=== PATIENT | female | born 1970 | race Caucasian/White ===

== ENCOUNTER 2020-10-25 20:09 | Emergency (ER) | payer BC, OTHER ==
[~2020-10-25 20:09] MED LIST: AIMOVIG AU140 MG/1 M SQ; ALBUTEROL1.25 MG/3 INH; ASPIR 8181 MG PO; ATROVENT HFA12.9 GM INH; AUGMENTIN 875-1 EACH PO; CIPRO500 MG PO; COLACE 100MG C100 MG PO; CYANOCOBAL1000 MCG/1 INJ; CYCLOBENZAPRINE5 MG PO; ELAVIL 50 MG TA50 MG PO; FLAGYL500 MG PO; FLONASE 0.05% N16 GM; HYDROCODON-ACE1 EAC4 PO; IBUPROFEN600 MG PO; IPRATROPIU0.2 MG/1 M INH; LEVAQUIN500 MG PO; NAPROSYN500 MG PO; NORCO 5-325 TA1 EACH PO; NORCO 7.5-3251 EACH PO; PREDNISONE20 MG PO; PROVENTIL HFA6.7 GM INH; ROBITUSSIN DM UD5 ML PO; SINGULAIR10 MG PO; TESSALON PERLE100 MG PO; TRAZODONE HCL150 MG PO; VENTOLIN HFA 66.7 GM INH; WELLBUTRIN XL300 M1 PO; ZESTRIL5 MG PO; ZOFRAN4 MG PO; ZYRTEC10 MG PO
== END 2020-10-25 22:14 | disposition left against medical advice (07) ==
LOC: ER1 20:09
DX: R05 Cough (principal); R07.9 Chest pain, unspecified; Z53.21 Procedure and treatment not carried out due to patient leaving prior to being seen by health care provider

== ENCOUNTER 2020-10-27 14:16 | Emergency (ER) | payer OTHER ==
[2020-10-27 16:36] LABS: RED BLOOD COUNT 4.58 M/UL (4.00-5.10); WHITE BLOOD COUNT 8.9 K/UL (4.5-11.0)
[2020-10-27 17:07] LABS: BUN/CREATININE RATIO 22 (0-10)
[2020-10-27] MEDS ORDERED: CEFUROXIME500 MG PO (17:12)
[2020-10-27] MEDS ORDERED: ZOFRAN4 MG PO (17:12)
== END 2020-10-27 17:38 | disposition home or self-care (01) ==
LOC: ER1 14:16
PROVIDERS: Preventive Medicine Occupational Medicine
DX: N39.0 Urinary tract infection, site not specified (principal); I10 Essential (primary) hypertension; I25.10 Atherosclerotic heart disease of native coronary artery without angina pectoris; E11.9 Type 2 diabetes mellitus without complications; F17.210 Nicotine dependence, cigarettes, uncomplicated; Z88.8 Allergy status to other drugs, medicaments and biological substances; Z20.828 Contact with and (suspected) exposure to other viral communicable diseases
CPT/HCPCS: 71045; 80053; 81001; 83690; 85025; 85652; 86140; 87086; 87635; 93005; 94664; 96374; 99284; J2405; J7030

== ENCOUNTER → 2020-12-07 | Outpatient (CLI) | payer OTHER ==
[~2020-12-07] MED LIST changes: +CEFUROXIME500 MG PO; +IBUPROFEN800 MG PO; +MACROBID 100 M100 M1 PO
== END ==
LOC: RAD 15:17
DX: Z03.818 Encounter for observation for suspected exposure to other biological agents ruled out (principal); M25.562 Pain in left knee; R51.9 Headache, unspecified; R43.0 Anosmia; M25.561 Pain in right knee; M25.512 Pain in left shoulder
CPT/HCPCS: 71046; 72040; 73030; 73560

== ENCOUNTER → 2021-01-19 | Outpatient (CLI) | payer OTHER | LOC: SLEEP 21:30 | DX: R29.818 Other symptoms and signs involving the nervous system (principal) | CPT/HCPCS: 95810 ==

== ENCOUNTER 2021-04-06 20:44 | Emergency (ER) | payer OTHER ==
[~2021-04-06 20:44] MED LIST changes: -IBUPROFEN800 MG PO; -MACROBID 100 M100 M1 PO
[2021-04-06] MEDS ORDERED: IBUPROFEN800 MG PO (22:39)
== END 2021-04-06 23:15 | disposition home or self-care (01) ==
LOC: ER1 20:44
DX: S80.01XA Contusion of right knee, initial encounter (principal); F17.210 Nicotine dependence, cigarettes, uncomplicated; Z90.710 Acquired absence of both cervix and uterus; Z88.8 Allergy status to other drugs, medicaments and biological substances; Z90.89 Acquired absence of other organs; W20.8XXA Other cause of strike by thrown, projected or falling object, initial encounter
CPT/HCPCS: 73562; 96372; 99283; J1885

== ENCOUNTER → 2021-04-14 | Outpatient (CLI) | payer OTHER ==
[~2021-04-14] MED LIST changes: +IBUPROFEN800 MG PO; +MACROBID 100 M100 M1 PO
== END ==
LOC: KOH-I 11:30
DX: M25.561 Pain in right knee (principal); E55.9 Vitamin D deficiency, unspecified; M79.605 Pain in left leg; M25.512 Pain in left shoulder; G47.30 Sleep apnea, unspecified; R79.89 Other specified abnormal findings of blood chemistry
CPT/HCPCS: 73221

== ENCOUNTER 2021-05-17 13:56 | Emergency (ER) | payer OTHER ==
[~2021-05-17 13:56] MED LIST changes: -MACROBID 100 M100 M1 PO
[2021-05-17] MEDS ORDERED: MACROBID 100 M100 M1 PO (18:03)
[2021-05-17] MEDS ORDERED: TESSALON PERLE100 MG PO (18:03)
== END 2021-05-17 18:18 | disposition home or self-care (01) ==
LOC: ER1 13:56
DX: J06.9 Acute upper respiratory infection, unspecified (principal); N30.90 Cystitis, unspecified without hematuria; I10 Essential (primary) hypertension; J44.9 Chronic obstructive pulmonary disease, unspecified; Z86.73 Personal history of transient ischemic attack (TIA), and cerebral infarction without residual deficits; Z90.710 Acquired absence of both cervix and uterus; F17.200 Nicotine dependence, unspecified, uncomplicated; Z20.822 Contact with and (suspected) exposure to COVID-19; Z88.8 Allergy status to other drugs, medicaments and biological substances
CPT/HCPCS: 0240U; 71045; 81001; 99285

== ENCOUNTER → 2021-09-09 | Outpatient (CLI) | payer OTHER ==
[~2021-09-09] MED LIST changes: +MACROBID 100 M100 M1 PO
== END ==
LOC: KOH-I 11:55
DX: J20.9 Acute bronchitis, unspecified (principal); Z03.818 Encounter for observation for suspected exposure to other biological agents ruled out
CPT/HCPCS: 71046

== ENCOUNTER 2021-12-23 16:50 | Emergency (ER) | payer OTHER ==
[2021-12-23 17:50] LABS: RED BLOOD COUNT 4.35 M/UL (4.00-5.10); WHITE BLOOD COUNT 9.6 K/UL (4.5-11.0)
[2021-12-23 18:19] LABS: BUN/CREATININE RATIO 18 (0-10)
[2021-12-23] MEDS ORDERED: CARBAMAZEPINE100 M1 PO (19:16)
== END 2021-12-23 19:45 | disposition home or self-care (01) ==
LOC: ER1 16:50
PROVIDERS: Physician Assistant
DX: G50.0 Trigeminal neuralgia (principal); R42 Dizziness and giddiness; F17.200 Nicotine dependence, unspecified, uncomplicated; R51.9 Headache, unspecified
CPT/HCPCS: 70450; 71045; 80053; 82550; 82553; 84484; 85025; 93005; 99284; J1885

== ENCOUNTER 2022-01-28 13:54 | Emergency (ER) | payer OTHER ==
[~2022-01-28 13:54] MED LIST changes: +CARBAMAZEPINE100 M1 PO
[2022-01-28 16:46] LABS: HEMOGLOBIN 14.1 gm/dl (12.3-15.3); RED BLOOD COUNT 4.54 M/UL (4.00-5.10)
[2022-01-28 17:03] LABS: BUN/CREATININE RATIO 17 (0-10)
[2022-01-28] MEDS ORDERED: CYCLOBENZAPRINE10 MG PO (19:09)
== END 2022-01-28 19:52 | disposition home or self-care (01) ==
LOC: ER1 13:54
PROVIDERS: Emergency Medicine
DX: S39.012A Strain of muscle, fascia and tendon of lower back, initial encounter (principal); I10 Essential (primary) hypertension; J44.9 Chronic obstructive pulmonary disease, unspecified; F17.210 Nicotine dependence, cigarettes, uncomplicated; Z87.442 Personal history of urinary calculi; Z88.8 Allergy status to other drugs, medicaments and biological substances
CPT/HCPCS: 80053; 81001; 83690; 85025; 96374; 96375; 99284; J2270; J2360; J2405; J7030; Q9967

== ENCOUNTER → 2022-02-24 | Outpatient (CLI) | payer OTHER ==
[~2022-02-24] MED LIST changes: +AMITRIPTYLINE H10 MG PO; +CRESTOR10 MG PO; +CYCLOBENZAPRINE10 MG PO; +LISINOPRIL5 MG PO; +NURTEC ODT75 MG PO; +PREMARIN 0.60.625 MG GT; +PROAIR HFA8.5 GM INH; +TYLENOL EXTRA500 MG PO; +VITAMIN B-121000 MCG PO; +VITAMIN C500 M4 PO; +VITAMIN D21250 MCG PO; +VITAMIN D325 MC6 PO
== END ==
LOC: KOH-I 09:00
DX: M19.012 Primary osteoarthritis, left shoulder (principal)
CPT/HCPCS: 73200

== ENCOUNTER → 2022-02-27 | Outpatient (CLI) | payer OTHER ==
[2022-02-27 09:09] LABS: HEMOGLOBIN 13.4 gm/dl (12.3-15.3); RED BLOOD COUNT 4.21 M/UL (4.00-5.10); WHITE BLOOD COUNT 8.7 K/UL (4.5-11.0)
[2022-02-27 09:30] LABS: BUN/CREATININE RATIO 17 (0-10)
== END ==
LOC: OPSV2 08:00 → EDSTATUS 08:00 → OPSV2 08:14
PROVIDERS: Anesthesiology
DX: Z01.818 Encounter for other preprocedural examination (principal); M19.012 Primary osteoarthritis, left shoulder; R94.31 Abnormal electrocardiogram [ECG] [EKG]
CPT/HCPCS: 36415; 80048; 85025; 93005

== ENCOUNTER → 2022-02-27 | Outpatient (CLI) | payer OTHER | LOC: EXRD 10:00 | DX: M81.0 Age-related osteoporosis without current pathological fracture (principal); Z78.0 Asymptomatic menopausal state; M25.561 Pain in right knee; E55.9 Vitamin D deficiency, unspecified; R79.89 Other specified abnormal findings of blood chemistry; M79.605 Pain in left leg; G47.30 Sleep apnea, unspecified; R25.2 Cramp and spasm; G56.00 Carpal tunnel syndrome, unspecified upper limb; M25.512 Pain in left shoulder | CPT/HCPCS: 77080 ==

== ENCOUNTER → 2022-03-09 | Outpatient (CLI) | payer OTHER ==
[~2022-03-09] MED LIST changes: -CYANOCOBAL1000 MCG/1 INJ
[2022-03-09 11:35] LABS: BUN/CREATININE RATIO 16 (0-10)
== END ==
LOC: LAB 10:24
PROVIDERS: Anesthesiology
DX: Z01.812 Encounter for preprocedural laboratory examination (principal)
CPT/HCPCS: 36415; 80048; 86850; 86900; 86901; J7030

== ENCOUNTER → 2022-04-04 | Outpatient (CLI) | payer OTHER | LOC: EMI 13:44 | DX: G50.0 Trigeminal neuralgia (principal); R51.9 Headache, unspecified | CPT/HCPCS: 70553; A9577 ==

== ENCOUNTER → 2022-06-15 | Outpatient (CLI) | payer OTHER | LOC: RAD 16:03 | DX: U09.9 Post COVID-19 condition, unspecified (principal) | CPT/HCPCS: 71046 ==